=== PATIENT | male | born 1940 | race Caucasian/White ===

== ENCOUNTER 2020-08-26 01:42 | Inpatient (IN) ==
[2020-08-26] MEDS ORDERED: ACETAMINOPHEN 500 MG TABLET ONE (02:15)
[2020-08-26] MEDS ORDERED: cloNIDine 0.1 MG TABLET PO STA (02:17)
[2020-08-26] MEDS ORDERED: ONDANSETRON 4 MG/2 ML VIAL IV STA (02:20)
[2020-08-26] MEDS ORDERED: niCARdipine 25 MG/10 ML VIAL IV ONE (02:26)
[2020-08-26] MEDS ORDERED: DILTIAZEM 25 MG/5 ML VIAL IV ONE (02:27)
[2020-08-26 02:32] LABS: Basophils % 0.3 % (0.0-0.8); Eosinophils % 0.1 % (0.00-10.9); Hematocrit 43.4 VOL% (42.0-52.0); Hemoglobin 14.7 GM/DL (14.0-18.0); Immature Granulocytes % 0.3 %; Immature Granulocytes Absolute 0.02 #; Lymphocytes # 0.1 10*3/uL (1.4-4.0); Lymphocytes % 0.9 % (21.2-54.2); Mean Corpuscular HGB Conc 33.9 GM/DL (32-36); Mean Corpuscular Volume 97.7 FL (87-102); Mean Platelet Volume 8.6 FL (9.6-12.0); Monocytes % 0.4 % (1.7-12.7); Platelet Count 181 T/CUMM (130-400); Red Blood Count 4.44 MC/CUMM (3.8-5.5); Red Cell Distribution Width 13.1 % (9.3-17.3)
[2020-08-26] MEDS ORDERED: ONDANSETRON 4 MG/2 ML VIAL ONE (02:32)
[2020-08-26] MEDS ORDERED: DILTIAZEM 50 MG/10 ML VIAL IV STA (02:32)
[2020-08-26] MEDS ORDERED: SODIUM CHLORIDE 0.9% 1,000 ML IV STA (02:32)
[2020-08-26 02:43] LABS: INR 1.1; PT Patient Result 11.7 SECS (10.5-12.0); Partial Thromboplastin Time 24.8 SECS (23.9-33.8)
[2020-08-26 02:52] LABS: Albumin 3.7 G/DL (3.4-5.0); Bilirubin,Total 4.6 MG/DL (0.2-1.0); Calcium 9.3 MG/DL (8.5-10.1); Osmolality,Calculated 273.1 MOS/KG (273-304); Potassium 3.2 MMOL/L (3.5-5.1); Total Protein 7.4 G/DL (6.4-8.2)
[2020-08-26 03:12] LABS: Band Neutrophils 15 % (0-10); Lymphocytes 1 % (20-55); Metamyelocytes 1 %; Segmented Neutrophils 81 % (50-85); Total Cells Counted 100
[2020-08-26 03:13] LABS: Hypochromasia 1+; Platelet Estimate Normal
[2020-08-26] MEDS ORDERED: DILTIAZEM 100 MG VIAL.ADD IV ONE (03:54)
[2020-08-26 03:57] LABS: Bilirubin,Urine Negative (Negative); Blood, Urine Small mg/dL (Negative); Glucose,Urine (UA) 50 mg/dL (Negative); Ketones,Urine Negative (Negative); Nitrite,Urine Negative (Negative); Protein,Urine Negative; RBC,Urine 9 /HPF (0-4); Squamous Epithelial Cell,Urine Occasional /HPF (0-10); Urine Appearance CLEAR (Clear); Urine Color Amber (Yellow); Urine Specific Gravity 1.011 (1.001-1.035)
[2020-08-26] MEDS ORDERED: DILTIAZEM INJ 100 MG in SODIUM CHLORIDE 0.9% 100 ML IV SCH (04:00)
[2020-08-26] MEDS ORDERED: PIPERACILLIN/TAZOBACTAM 3,375 MG in SODIUM CHLORIDE 0.9% 100 ML IV STA (05:21)
[2020-08-26] MEDS ORDERED: VANCOMYCIN INJ 1,000 MG in SODIUM CHLORIDE 0.9% 250 ML IV STA (05:26)
[2020-08-26] MEDS ORDERED: SODIUM CHLORIDE 0.9% 500 ML IV STA (05:27)
[2020-08-26] MEDS ORDERED: SODIUM CHLORIDE 0.9% 2,550 ML IV ONE (06:24)
[2020-08-26] MEDS ORDERED: ACETAMINOPHEN 325 MG TABLET PO PRN (06:24)
[2020-08-26] MEDS ORDERED: guaiFENesin/DM ER 600-30 MG TABLET PO PRN (06:24)
[2020-08-26] MEDS ORDERED: diphenhydrAMINE CAP 25 MG CAPSULE PO PRN (06:24)
[2020-08-26] MEDS ORDERED: GLUCAGON 1 MG VIAL IM PRN (06:24)
[2020-08-26] MEDS ORDERED: ONDANSETRON 4 MG/2 ML VIAL IV PRN (06:24)
[2020-08-26] MEDS ORDERED: DEXTROSE 50% 25 GM/50 ML VIAL IV PRN (06:24)
[2020-08-26] MEDS ORDERED: ALBUTEROL/IPRATROPIUM 3 ML NEB RESP TX PRN (06:24)
[2020-08-26] MEDS ORDERED: VANCOMYCIN INJ 1,000 MG in SODIUM CHLORIDE 0.9% 250 ML IV SCH (06:30)
[2020-08-26] MEDS ORDERED: NOREPINEPHRINE 8 MG in SODIUM CHLORIDE 0.9% 242 ML IV PRN (06:43)
[2020-08-26 08:32] LABS: ABG Base Excess -3.3 MMOL/L (-2.5-2.5); ABG HCO3 21.7 MMOL/L (20-26); ABG Oxygen Saturation 97.3 % (95-100); ABG PCO2 34.6 MM HG (35-48); ABG PO2 91.5 MM HG (80-95); ABG TCO2 18.3 MMOL/L (23-27)
[2020-08-26] MEDS: AZITHROMYCIN INJ 500 MG in SODIUM CHLORIDE 0.9% 250 ML IV SCH (08:58)
[2020-08-26] MEDS ORDERED: POTASSIUM CHLORIDE 20 MEQ TABLET PO ONE (11:21)
[2020-08-26] MEDS ORDERED: MAGNESIUM SULF RIDER 2 GM/50 ML PREMIX IV PRN (11:26)
[2020-08-26] MEDS ORDERED: MAGNESIUM SULF RIDER 4 GM/100 ML PREMIX IV PRN (11:26)
[2020-08-26] MEDS: ENOXAPARIN 100 MG/ML SYRINGE SUBCUT SCH ×2 (13:03→22:48)
[2020-08-26 13:17] LABS: Thyroid Stimulating Hormone 0.669 uIU/ml (0.358-3.74)
[2020-08-26] MEDS: PIPERACILLIN/TAZOBACTAM 3,375 MG in SODIUM CHLORIDE 0.9% 100 ML IV SCH (18:20)
[2020-08-26] MEDS: VANCOMYCIN INJ 1,250 MG in SODIUM CHLORIDE 0.9% 250 ML IV SCH (18:20)
[2020-08-26] MEDS: ASCORBIC ACID 500 MG TABLET PO SCH (20:47)
[2020-08-26] MEDS ORDERED: hydrOXYzine HCL 25 MG TABLET PO PRN (21:54)
[2020-08-27] MEDS: PIPERACILLIN/TAZOBACTAM 3,375 MG in SODIUM CHLORIDE 0.9% 100 ML IV SCH ×3 (02:00→18:00)
[2020-08-27] MEDS: VANCOMYCIN INJ 1,250 MG in SODIUM CHLORIDE 0.9% 250 ML IV SCH (05:05)
[2020-08-27 06:35] LABS: Basophils % 0.2 % (0.0-0.8); Eosinophils # 0.1 10*3/uL (0.0-0.87); Eosinophils % 0.3 % (0.00-10.9); Hematocrit 36.1 VOL% (42.0-52.0); Immature Granulocytes % 1.1 %; Immature Granulocytes Absolute 0.19 #; Lymphocytes # 0.7 10*3/uL (1.4-4.0); Lymphocytes % 4.3 % (21.2-54.2); Mean Corpuscular HGB Conc 33.2 GM/DL (32-36); Mean Corpuscular Volume 100.6 FL (87-102); Mean Platelet Volume 9.4 FL (9.6-12.0); Monocytes % 10.4 % (1.7-12.7); Neutrophils % 83.7 % (38.7-73.9); Platelet Count 160 T/CUMM (130-400); Red Blood Count 3.59 MC/CUMM (3.8-5.5); Red Cell Distribution Width 13.9 % (9.3-17.3); White Blood Count 17.3 T/CUMM (4-12)
[2020-08-27 06:56] LABS: Calcium 8.6 MG/DL (8.5-10.1); Osmolality,Calculated 280.4 MOS/KG (273-304)
[2020-08-27 07:00] LABS: Anisocytosis 1+; Band Neutrophils 2 % (0-10); Lymphocytes 5 % (20-55); Macrocytosis 1+; Platelet Estimate Normal; Segmented Neutrophils 82 % (50-85); Total Cells Counted 100
[2020-08-27 07:01] LABS: Albumin 2.5 G/DL (3.4-5.0); Bilirubin,Total 4.6 MG/DL (0.2-1.0); Calcium 8.5 MG/DL (8.5-10.1); Osmolality,Calculated 280.4 MOS/KG (273-304); Potassium 3.9 MMOL/L (3.5-5.1)
[2020-08-27] MEDS ORDERED: NON-FORMULARY MEDICATION (Ursodiol 250 mg tablet) PO SCH (09:00)
[2020-08-27] MEDS: AZITHROMYCIN INJ 500 MG in SODIUM CHLORIDE 0.9% 250 ML IV SCH (09:19)
[2020-08-27] MEDS: ASCORBIC ACID 500 MG TABLET PO SCH ×2 (09:20→20:26)
[2020-08-27] MEDS: PANTOPRAZOLE 40 MG TABLET PO SCH ×2 (09:20→20:26)
[2020-08-27] MEDS: ENOXAPARIN 100 MG/ML SYRINGE SUBCUT SCH ×2 (12:17→23:43)
[2020-08-27] MEDS ORDERED: GENTAMICIN INJ 80 MG in PREMIX 1 EACH IV ONE (13:15)
[2020-08-27 14:53] LABS: Risk Ratio 8.23; VLDL CHOLESTEROL 28.4 MG/DL
[2020-08-27] MEDS ORDERED: PERMETHRIN 5% CREAM 60 GM TUBE TOP ONE (15:30)
[2020-08-27] MEDS: traMADol 50 MG TABLET PO PRN (16:10)
[2020-08-27] MEDS: METOPROLOL TARTRATE 25 MG TABLET PO SCH ×2 (16:11→20:26)
[2020-08-27] MEDS: MULTIVITAMIN (CENTRUM) TABLET PO SCH (20:26)
[2020-08-27] MEDS: SERTRALINE 25 MG TABLET PO SCH (20:26)
[2020-08-28] MEDS: PIPERACILLIN/TAZOBACTAM 3,375 MG in SODIUM CHLORIDE 0.9% 100 ML IV SCH ×3 (02:28→16:38)
[2020-08-28] MEDS: traMADol 50 MG TABLET PO PRN ×2 (02:32→08:20)
[2020-08-28 05:53] LABS: Basophils % 0.1 % (0.0-0.8); Eosinophils # 0.1 10*3/uL (0.0-0.87); Eosinophils % 0.8 % (0.00-10.9); Hematocrit 39.9 VOL% (42.0-52.0); Hemoglobin 13.3 GM/DL (14.0-18.0); Immature Granulocytes % 0.5 %; Immature Granulocytes Absolute 0.06 #; Lymphocytes # 0.6 10*3/uL (1.4-4.0); Lymphocytes % 5.2 % (21.2-54.2); Mean Corpuscular HGB Conc 33.3 GM/DL (32-36); Mean Corpuscular Volume 101.3 FL (87-102); Mean Platelet Volume 9.4 FL (9.6-12.0); Monocytes % 5.7 % (1.7-12.7); Neutrophils % 87.7 % (38.7-73.9); Platelet Count 181 T/CUMM (130-400); Red Blood Count 3.94 MC/CUMM (3.8-5.5); Red Cell Distribution Width 13.7 % (9.3-17.3); White Blood Count 11.2 T/CUMM (4-12)
[2020-08-28 06:21] LABS: Albumin 2.7 G/DL (3.4-5.0); Bilirubin,Total 3.2 MG/DL (0.2-1.0); Osmolality,Calculated 272.1 MOS/KG (273-304); Potassium 3.8 MMOL/L (3.5-5.1); Total Protein 6.7 G/DL (6.4-8.2)
[2020-08-28] MEDS: PANTOPRAZOLE 40 MG TABLET PO SCH ×2 (08:20→21:02)
[2020-08-28] MEDS: AZITHROMYCIN INJ 500 MG in SODIUM CHLORIDE 0.9% 250 ML IV SCH (08:20)
[2020-08-28] MEDS: ASCORBIC ACID 500 MG TABLET PO SCH ×2 (08:20→21:01)
[2020-08-28] MEDS: METOPROLOL TARTRATE 25 MG TABLET PO SCH ×3 (08:20→21:02)
[2020-08-28] MEDS ORDERED: METOPROLOL TARTRATE 25 MG TABLET PO ONE ×2 (08:56→08:59)
[2020-08-28] MEDS: ENOXAPARIN 100 MG/ML SYRINGE SUBCUT SCH (11:17)
[2020-08-28] MEDS: MULTIVITAMIN (CENTRUM) TABLET PO SCH (21:02)
[2020-08-28] MEDS: SERTRALINE 25 MG TABLET PO SCH (21:02)
[2020-08-29] MEDS: PIPERACILLIN/TAZOBACTAM 3,375 MG in SODIUM CHLORIDE 0.9% 100 ML IV SCH (00:34)
[2020-08-29] MEDS ORDERED: INDOMETHACIN SUPP 50 MG SUPP RECTAL ONE ×2 (06:19→08:00)
[2020-08-29 07:04] LABS: Basophils % 0.2 % (0.0-0.8); Eosinophils # 0.2 10*3/uL (0.0-0.87); Eosinophils % 2.1 % (0.00-10.9); Hematocrit 37.8 VOL% (42.0-52.0); Hemoglobin 12.4 GM/DL (14.0-18.0); Lymphocytes # 0.9 10*3/uL (1.4-4.0); Mean Corpuscular HGB Conc 32.8 GM/DL (32-36); Mean Corpuscular Volume 100.8 FL (87-102); Mean Platelet Volume 9.7 FL (9.6-12.0); Monocytes % 8.5 % (1.7-12.7); Neutrophils % 79.2 % (38.7-73.9); Platelet Count 204 T/CUMM (130-400); Red Blood Count 3.75 MC/CUMM (3.8-5.5); Red Cell Distribution Width 13.6 % (9.3-17.3); White Blood Count 9.7 T/CUMM (4-12)
[2020-08-29 07:11] LABS: INR 1.1; PT Patient Result 11.9 SECS (10.5-12.0)
[2020-08-29 07:22] LABS: Albumin 2.4 G/DL (3.4-5.0); Bilirubin,Total 3.8 MG/DL (0.2-1.0); Calcium 8.9 MG/DL (8.5-10.1); Potassium 3.5 MMOL/L (3.5-5.1); Total Protein 6.2 G/DL (6.4-8.2)
[2020-08-29] MEDS: LACTATED RINGERS 1,000 ML IV SCH (10:11)
[2020-08-29] MEDS: AZITHROMYCIN INJ 500 MG in SODIUM CHLORIDE 0.9% 250 ML IV SCH (10:11)
[2020-08-29] MEDS: ASCORBIC ACID 500 MG TABLET PO SCH ×2 (10:18→20:41)
[2020-08-29] MEDS: METOPROLOL TARTRATE 25 MG TABLET PO SCH ×3 (10:18→20:41)
[2020-08-29] MEDS: PANTOPRAZOLE 40 MG TABLET PO SCH ×2 (10:18→20:41)
[2020-08-29] MEDS ORDERED: SUCCINYLCHOLINE 200 MG/10 ML VIAL ONE (11:02)
[2020-08-29] MEDS ORDERED: LIDOCAINE 2% 5 ML VIAL ONE (11:02)
[2020-08-29] MEDS ORDERED: propofoL 200 MG/20 ML VIAL IV ONE (11:02)
[2020-08-29] MEDS ORDERED: fentaNYL 100 MCG/2 ML VIAL ONE (11:02)
[2020-08-29] MEDS ORDERED: ROCURONIUM 50 MG/5 ML VIAL IV ONE (11:02)
[2020-08-29] MEDS ORDERED: DEXAMETHASONE 4 MG/1 ML VIAL ONE (11:02)
[2020-08-29] MEDS ORDERED: ONDANSETRON 4 MG/2 ML VIAL ONE (11:02)
[2020-08-29] MEDS ORDERED: ETOMIDATE 20 MG/10 ML VIAL IV ONE (11:04)
[2020-08-29] MEDS ORDERED: SEVOFLURANE 1 UNIT/15 MINUTE INH ONE (12:03)
[2020-08-29] MEDS: cefTRIAXone 2,000 MG in SODIUM CHLORIDE 0.9% 100 ML IV SCH (13:24)
[2020-08-29] MEDS ORDERED: hydrALAZINE 20 MG/1 ML VIAL IV PRN (13:25)
[2020-08-29] MEDS: MULTIVITAMIN (CENTRUM) TABLET PO SCH (20:41)
[2020-08-29] MEDS: SERTRALINE 25 MG TABLET PO SCH (20:41)
[2020-08-30 05:23] LABS: Basophils % 0.1 % (0.0-0.8); Hemoglobin 12.4 GM/DL (14.0-18.0); Immature Granulocytes % 0.7 %; Immature Granulocytes Absolute 0.06 #; Lymphocytes # 0.5 10*3/uL (1.4-4.0); Lymphocytes % 5.7 % (21.2-54.2); Mean Corpuscular HGB Conc 33.5 GM/DL (32-36); Mean Corpuscular Volume 98.9 FL (87-102); Mean Platelet Volume 9.5 FL (9.6-12.0); Monocytes % 6.9 % (1.7-12.7); Neutrophils % 86.6 % (38.7-73.9); Platelet Count 189 T/CUMM (130-400); Red Blood Count 3.74 MC/CUMM (3.8-5.5); Red Cell Distribution Width 13.3 % (9.3-17.3); White Blood Count 8.3 T/CUMM (4-12)
[2020-08-30 06:01] LABS: Albumin 2.3 G/DL (3.4-5.0); Bilirubin,Total 1.6 MG/DL (0.2-1.0); Osmolality,Calculated 279.5 MOS/KG (273-304); Total Protein 5.9 G/DL (6.4-8.2)
[2020-08-30] MEDS: ASCORBIC ACID 500 MG TABLET PO SCH (09:45)
[2020-08-30] MEDS: PANTOPRAZOLE 40 MG TABLET PO SCH (09:45)
[2020-08-30] MEDS: cefTRIAXone 2,000 MG in SODIUM CHLORIDE 0.9% 100 ML IV SCH (09:45)
[2020-08-30] MEDS: METOPROLOL TARTRATE 25 MG TABLET PO SCH (09:45)
[2020-08-30] MEDS: LACTATED RINGERS 1,000 ML IV SCH (11:03)
[2020-08-30] MEDS: ENOXAPARIN 100 MG/ML SYRINGE SUBCUT SCH (11:05)
[2020-08-30] MEDS ORDERED: METOPROLOL TARTRATE 50 MG TABLET PO SCH (15:00)
[2020-08-30 15:16] VITALS: BP 144/69
[2020-08-30] MEDS ORDERED: APIXABAN 5 MG TABLET PO SCH (21:00)
== END 2020-08-30 17:57 | disposition home or self-care (01) | DRG 444 ==
LOC: N.ED 01:42 → N.EDINP 06:41 → SUATTDRO 06:41 → N.CC 07:14 → N.5E 21:48
PROVIDERS: ADMIT Internal Medicine; ATTEND Emergency Medicine